=== PATIENT | male | born 1985 | race Hispanic/Latino ===

== ENCOUNTER 2021-01-04 08:21 | Emergency (ER) | payer SELFPAY ==
[~2021-01-04] VITALS: Ht 160 cm; Wt 60.0 kg
[2021-01-04 08:49] LABS: IMMATURE GRANULOCYTES 0.2 % (0.0-5.0); MEAN CORPUSCULAR HGB 32.6 pG CALC (26.0-32.0); MEAN CORPUSCULAR HGB CONC 33.9 g/dL CAL (32.0-36.0); NEUT# 1.98 thou/uL (1.82-7.42); RED BLOOD COUNT 4.29 mill/uL (4.70-6.10); RED CELL DISTRI WIDTH 12.3 % (11.5-15.5)
[2021-01-04 08:51] LABS: HEMATOCRIT 41.3 % (39.0-50.0); MEAN CELL VOLUME 96.3 fL CALC (80.0-100.0)
[2021-01-04 09:09] LABS: ALBUMIN 5.1 g/dL (3.2-5.0); ALKALINE PHOSPHATASE 136 u/l (38-126); ANION GAP 19 (6-22 (CALC)); BUN 6 mg/dL (9-20); BUN/CREATININE RATIO 11 (12-20 (CALC)); CARBON DIOXIDE 22 mmol/l (22-30); CHLORIDE 101 mmol/l (95-108); CREATININE 0.5 mg/dL (0.7-1.3); GFR > 60 ML/MIN (>=60 (CALC)); GFR FOR AFR.AMER. > 60 ML/MIN (>=60 (CALC)); POTASSIUM 3.6 mmol/l (3.5-5.1); SODIUM 139 mmol/l (137-146)
[2021-01-04 09:10] LABS: SGOT/AST 219 u/l (17-59)
[2021-01-04 09:11] LABS: ACT PARTIAL THROMBO TIME 24.6 SECONDS (20.0-32.5); INTERNATIONAL NORMALIZED RATIO 1.1 RATIO (0.7-1.3)
[2021-01-04 11:00] VITALS: BP 132/77
== END 2021-01-04 11:00 | disposition home or self-care (01) | DRG 897 ==
LOC: ED 08:21
PROVIDERS: Student in an Organized Health Care Education/Training Program
DX: F10.239 Alcohol dependence with withdrawal, unspecified (principal); M62.81 Muscle weakness (generalized); R07.9 Chest pain, unspecified; Z20.822 Contact with and (suspected) exposure to COVID-19

== ENCOUNTER 2022-10-14 10:24 | Emergency (ER) | payer OTHER ==
[~2022-10-14] VITALS: Ht 165.1 cm; Wt 62.0 kg
[2022-10-14 10:34] VITALS: BP 141/89
[2022-10-14 11:00] VITALS: BP 131/91
[2022-10-14 11:30] VITALS: BP 126/94
[2022-10-14 12:00] VITALS: BP 121/80
[2022-10-14 12:20] VITALS: BP 121/80
== END 2022-10-14 12:20 | disposition home or self-care (01) | DRG 605 ==
LOC: ED 10:24
DX: S60.222A Contusion of left hand, initial encounter (principal); W31.9XXA Contact with unspecified machinery, initial encounter; S60.512A Abrasion of left hand, initial encounter